=== PATIENT | male | born 1995 | race Two or more races ===

== ENCOUNTER 2018-05-02 13:25 | Outpatient (CLI) | payer BC | END 2018-05-02 23:59 | disposition home or self-care (01) | LOC: RAD 13:25 | PROVIDERS: ATTEND Family Medicine | DX: R00.2 Palpitations (principal) | CPT/HCPCS: 71046 ==

== ENCOUNTER 2019-09-14 14:20 | Emergency (ER) | payer BC, OTHER ==
[~2019-09-14] VITALS: Ht 167.6 cm; Wt 72.6 kg
--- NOTE | 2019-09-14 14:39 | NUR ---
PT BIB PARENTS C/O ABDOMINAL PAIN AND DIARRHEA STARTED YESTERDAY. PT IS AAOX3, NOT IN RESPIRATORY DISTRESS, HOOKED TO MONITOR, KEPT RESTED AND COMFORTABLE, WILL CONTINUE TO MONITOR.
--- NOTE | 2019-09-14 14:45 | NUR ---
AT BEDSIDE FOR EVAL.
[2019-09-14] MEDS ORDERED: ONDANSETRON HCL/PF 4 MG/2 ML VIAL IVP ONE (15:00)
[2019-09-14] MEDS ORDERED: IV NS 0.9% 1,000 ML BAG IV ONE ×2 (15:00)
[2019-09-14] MEDS ORDERED: LOPERAMIDE HCL (2 MG CAP) 2 MG CAPSULE PO ONE ×2 (15:00→15:02)
[2019-09-14] MEDS ORDERED: ONDANSETRON HCL/PF 4 MG/2 ML VIAL ONE (15:02)
[2019-09-14 15:04] LABS: BASOPHILS % (AUTO) 0.3 % (0.0-2.0); EOSINOPHILS % (AUTO) 0.1 % (0.0-6.0); HEMATOCRIT 46 % (39-51); HEMOGLOBIN 15.6 g/dL (13.5-17.5); LYMPHOCYTES # (AUTO) 0.7 /CMM (0.8-4.8); LYMPHOCYTES % (AUTO) 6.8 % (20.0-44.0); MEAN CORPUSCULAR HGB CONC 34 g/dl (31.0-36.0); MEAN CORPUSCULAR VOLUME 90 fL (80-96); MONOCYTES # (AUTO) 0.4 /CMM (0.1-1.30); MONOCYTES % (AUTO) 4.1 % (2.0-12.0); NEUTROPHILS # (AUTO) 9.5 /CMM (1.8-8.9); NEUTROPHILS % (AUTO) 88.7 % (43.0-81.0); PLATELET COUNT (AUTO) 183 /CMM (150-450); RED BLOOD CELL COUNT(AUTO) 5.11 MIL/uL (4.5-6.0); WHITE BLOOD COUNT (AUTO) 10.7 K/uL (4.3-11.0)
--- NOTE | 2019-09-14 15:10 | NUR ---
IV LINE ESTABLISHED, BLOOD DRAWN AND SENT TO LAB
[2019-09-14 15:11] LABS: CALCIUM, SERUM 8.5 mg/dL (8.5-10.1); CARBON DIOXIDE 26 mmol/L (21-32); CHLORIDE 102 mmol/L (98-107); CREATININE 0.8 mg/dL (0.6-1.3); GLUCOSE 110 mg/dL (74-106); POTASSIUM 3.5 mmol/L (3.5-5.1); SODIUM SERUM 138 mmol/L (136-145); UREA NITROGEN, BLOOD 9 mg/dL (7-18)
[2019-09-14 15:18] LABS: ALANINE AMINOTRANSFERASE 28 U/L (12-78); ALBUMIN 3.5 g/dL (3.4-5.0); ALCOHOL, BLOOD < 3 mg/dL (0-0); ALKALINE PHOSPHATASE 66 U/L (46-116); ASPARTATE AMINOTRANSFERASE 20 U/L (15-37); BILIRUBIN,DIRECT 0.1 mg/dL (0.0-0.2); BILIRUBIN,TOTAL 0.5 mg/dL (0.2-1.0)
[2019-09-14 15:19] LABS: SALICYLATE 0.7 mg/dL (2.8-20.0)
[2019-09-14 15:20] LABS: ACETAMINOPHEN 0 ug/ml (10-30)
--- NOTE | 2019-09-14 15:23 | NUR ---
URINAL GIVEN BUT UNABLE TO PROVIDE URINE SPECIMEN THIS TIME
--- NOTE | 2019-09-14 16:00 | NUR ---
URINE SPECIMEN COLLECTED AND SENT TO LAB.
--- NOTE | 2019-09-14 16:04 | NUR ---
hospice social worker at bedside
[2019-09-14 16:21] LABS: APPEARANCE,URINE Clear (CLEAR); BILIRUBIN,URINE Negative (NEGATIVE); BLOOD, URINE Negative Ery/uL (NEGATIVE); COLOR,URINE Yellow (YELLOW); KETONES,URINE Negative (NEGATIVE); LEUKOCYTE ESTERASE ,URINE Negative (NEGATIVE); NITRITE, URINE Negative (NEGATIVE); PH,URINE 5.5 (5.0-8.0); PROTEIN,URINE Negative (NEGATIVE); UGLUCOSE Negative (NEGATIVE); UROBILINOGEN,URINE 0.2 EU/dL (0.2)
--- NOTE | 2019-09-14 16:40 | NUR ---
resident services manager consult requested by ER Torri Tam MD for possible danger to self. Pt is a 24 year old male admitted to [facility] ER for multiple complaints. Pt was laying down in bed, and pts father and mother were at bedside. Pt was alert and oriented x 4 (person, place, time, situation). Pt states he was brought to the ER because he "felt sick." Pt's father states he requested the consult because pt has been exhibiting some depressive symptoms for some time and father is concern for pts well-being. SW conducted a depression screening with pt and pt initially denied symtoms, however, when pts father prompted pt to respond, pt said "I guess I feel depressed sometimes but its only because of the situations I am in, not when I'm around my family or the people I love." Per pt and pts father, pt has a young daughter and has been going through a difficult custody situation with the mother of his child. Pt states that this make his "depressed sometimes, but its not a big deal." Pt denied thoughts of hurting himself. Pt denies suicidal ideation, pt denies homicidal ideation, pt denies visual and auditory hallucinations. Pt denies having a history of psychiatric diagnosis and denies alcohol use. Pt states he smokes marijuana, "sometimes." Pt last used marijuana "4 to 5 days ago." Pt states he smokes cigarettes "sometimes." Pt was receptive to counseling services and family support resources. SW provided pt with the following referrals: [facility], [facility], [address], [address], [place]. Call Geroges Smith at [phone], [facility], [facility], [address], [place]. Call [phone], 22/[facility], [address], [place]. Call Gallo Meadows at [phone], [facility], [address], [employer] (Chinese). Call [phone], [facility], [address]. Call Cinthia Howard at [phone]. SW also provided the following referrals: [facility] [address] [facility], [facility] [address]; [phone], [facility] [address] [facility] [address]; [phone], and [facility] [phone]. No other services needed at this time. SW available if needed.
--- NOTE | 2019-09-14 17:03 | NUR ---
IV removed. Catheter intact and site benign. Pressure and 4x4 applied to site. No bleeding noted. Patient discharged to home in stable condition. Written and verbal after care instructions given. Patient verbalizes understanding of instruction.
[2019-09-14 17:04] VITALS: BP 118/74
== END 2019-09-14 17:05 | disposition home or self-care (01) ==
LOC: ER 14:22
DX: R19.7 Diarrhea, unspecified (principal); F15.10 Other stimulant abuse, uncomplicated; J45.909 Unspecified asthma, uncomplicated; F12.10 Cannabis abuse, uncomplicated
CPT/HCPCS: 36415; 80048; 80076; 80305; 80307; 80329; 81001; 85025; 96361; 96374; 99283; G0480; J2405; J7030 ×2; 81000-TC

== ENCOUNTER 2019-11-10 12:08 | Outpatient (CLI) | payer BC, MEDICAID | END 2019-11-10 23:59 | disposition home or self-care (01) | LOC: MERGE 12:08 → LAB 12:08 | PROVIDERS: ATTEND Family Medicine | DX: Z75.3 Unavailability and inaccessibility of health-care facilities (principal) ==

== ENCOUNTER 2019-11-10 12:44 | Outpatient (CLI) | payer BC ==
[2019-11-10 13:06] LABS: BASOPHILS % (AUTO) 0.6 % (0.0-2.0); EOSINOPHILS % (AUTO) 2.5 % (0.0-6.0); HEMATOCRIT 45 % (39-51); HEMOGLOBIN 14.9 g/dL (13.5-17.5); LYMPHOCYTES % (AUTO) 23.9 % (20.0-44.0); MEAN CORPUSCULAR HGB CONC 33 g/dl (31.0-36.0); MEAN CORPUSCULAR VOLUME 90 fL (80-96); MONOCYTES # (AUTO) 0.6 /CMM (0.1-1.30); MONOCYTES % (AUTO) 7.6 % (2.0-12.0); NEUTROPHILS # (AUTO) 5.6 /CMM (1.8-8.9); NEUTROPHILS % (AUTO) 65.4 % (43.0-81.0); PLATELET COUNT (AUTO) 201 /CMM (150-450); RED BLOOD CELL COUNT(AUTO) 4.99 MIL/uL (4.5-6.0); WHITE BLOOD COUNT (AUTO) 8.6 K/uL (4.3-11.0)
[2019-11-10 13:35] LABS: THYROID STIMULATING HORMONE 0.595 uIU/mL (0.358-3.74)
[2019-11-10 13:55] LABS: ALBUMIN 3.8 g/dL (3.4-5.0); BILIRUBIN,TOTAL 0.6 mg/dL (0.2-1.0); CALCIUM, SERUM 9.3 mg/dL (8.5-10.1); CREATININE 0.8 mg/dL (0.6-1.3); POTASSIUM 3.9 mmol/L (3.5-5.1); TOTAL PROTEIN, SERUM 6.7 g/dL (6.4-8.2)
== END 2019-11-10 23:59 | disposition home or self-care (01) ==
LOC: LAB 12:44
PROVIDERS: ATTEND Family Medicine
DX: R56.9 Unspecified convulsions (principal); F19.120 Other psychoactive substance abuse with intoxication, uncomplicated
CPT/HCPCS: 36415; 80053-TC; 80061-TC; 80305; 82306; 84439-TC; 84443-TC; 85025-TC

== ENCOUNTER 2019-11-13 10:06 | Outpatient (CLI) | payer BC ==
[2019-11-13] MEDS ORDERED: GADOTERIDOL 279.3 MG/ML VIAL IV ONE (14:43)
== END 2019-11-13 23:59 | disposition home or self-care (01) ==
LOC: MRI 10:06
PROVIDERS: ATTEND Family Medicine
DX: I34.0 Nonrheumatic mitral (valve) insufficiency (principal); I51.7 Cardiomegaly; R56.9 Unspecified convulsions; J32.2 Chronic ethmoidal sinusitis; J32.0 Chronic maxillary sinusitis
CPT/HCPCS: 70553; 93307; A9579